=== PATIENT | male | born 1995 | race Two or more races ===

== ENCOUNTER 2020-12-27 06:16 | Day surgery (SDC) | payer OTHER ==
[~2020-12-27] VITALS: Ht 170.2 cm; Wt 86.2 kg
[2020-12-27] MEDS ORDERED: ceFAZolin 1GM/50ML 100 ML IV ONE (06:48)
[2020-12-27] MEDS ORDERED: BUPIVACAINE HCL 50 ML ONE (07:08)
[2020-12-27] MEDS ORDERED: fentaNYL CITRATE 100 MCG/2 ML VL ONE (07:16)
[2020-12-27] MEDS ORDERED: MIDAZOLAM HCL 2MG/2ML 2ml VIAL (1mg/ml) ONE (07:17)
[2020-12-27] MEDS ORDERED: MEPERIDINE HCL (50 MG/ML) 1 ML VIAL ONE (07:17)
[2020-12-27] MEDS ORDERED: DexAMETHasone SOD PHOS 10MG/1ML VIAL INJ ONE (07:18)
[2020-12-27] MEDS ORDERED: PROPOFOL 10 MG/ML 20 ML IV ONE (07:18)
[2020-12-27] MEDS ORDERED: ePHEDrine SULFATE 50 MG/ML AMP IV PRN (08:45)
[2020-12-27] MEDS ORDERED: MORPHINE SULFATE 4 MG/ML SYR/VIAL IV PRN (08:45)
[2020-12-27] MEDS ORDERED: LABETALOL HCL 5 MG/ML 4ML SYRINGE IV PRN (08:45)
[2020-12-27] MEDS ORDERED: KETOROLAC TROMETH 30 MG/ML 1ML VIAL IV ONE (08:45)
[2020-12-27] MEDS ORDERED: ONDANSETRON HCL 4 MG/2 ML VIAL IV PRN (08:45)
[2020-12-27] MEDS ORDERED: HYDROmorphone HCL 2 MG/ML VL IV PRN (08:45)
[2020-12-27] MEDS ORDERED: MIDAZOLAM HCL 2MG/2ML 2ml VIAL (1mg/ml) IV PRN (08:45)
[2020-12-27 09:00] VITALS: BP 117/54
== END 2020-12-27 09:35 | disposition home or self-care (01) ==
LOC: SUR 06:16
PROVIDERS: ATTEND Orthopaedic Surgery Sports Medicine
DX: M25.562 Pain in left knee (principal); M23.232 Derangement of other medial meniscus due to old tear or injury, left knee; E66.9 Obesity, unspecified; Z68.29 Body mass index [BMI] 29.0-29.9, adult; Z98.890 Other specified postprocedural states; Z79.899 Other long term (current) drug therapy
CPT/HCPCS: 29882; J0690; J1100; J2175; J2250; J2704; J3010; J3490